=== PATIENT | female | born 1995 | race Caucasian/White ===

== ENCOUNTER 2017-09-09 17:10 | Emergency (ER) | payer OTHER ==
--- NOTE | 2017-09-09 17:39 | ER Document Report ---
ED Medical Screen (RME) - General Chief Complaint: Syncope Stated Complaint: WEAKNESS Time Seen by Provider: 09/09/17 17:33 Notes: Patient is a 22-year-old female who presents after syncopal event where she hit the right side of her head and had vomiting. She is following with cardiology and has a 30 day ekg monitor tech in place to assess for arrhythmias and causes of her syncope. Her neurologist thinks that it may be seizures, but once cardiac clearance first. Patient complaining of right-sided headache mild confusion. PE: Tenderness over right anterior forehead, no open wounds, grossly intact neuro exam I have greeted and performed a rapid initial assessment of this patient. A comprehensive ED assessment and evaluation of the patient, analysis of test results and completion of the medical decision making process will be conducted by additional ED providers. TRAVEL OUTSIDE OF THE [place] IN LAST 30 DAYS: No - Related Data Allergies/Adverse Reactions: Cephalosporins Allergy (Verified 09/09/17 17:29) Past Medical History - Social History Chew tobacco use (# tins/day): No Frequency of alcohol use: Occasional Drug Abuse: None Renal/ Medical History: Denies: Hx Peritoneal Dialysis Physical Exam - Vital signs Vitals: Temp Pulse Resp BP Pulse Ox 98.6 F 96 18 117/65 98 09/09/17 17:23 09/09/17 17:23 09/09/17 17:23 09/09/17 17:23 09/09/17 17:23 Course - Vital Signs Vital signs: Temp Pulse Resp BP Pulse Ox 98.6 F 96 18 117/65 98 09/09/17 17:23 09/09/17 17:23 09/09/17 17:23 09/09/17 17:23 09/09/17 17:23
[2017-09-09] MEDS ORDERED: ACETAMINOPHEN 325 MG TABLET PO ONE (17:45)
[2017-09-09] MEDS ORDERED: IBUPROFEN 600 MG TABLET PO ONE (17:45)
[2017-09-09 18:16] LABS: ABSOLUTE BASOPHILS # (AUTO) 0.1 10^3/uL (0.0-0.2); ABSOLUTE EOSINOPHILS # (AUTO) 0.1 10^3/uL (0.0-0.6); ABSOLUTE LYMPHOCYTES (AUTO) 2.3 10^3/uL (0.5-4.7); ABSOLUTE MONOCYTES (AUTO) 0.6 10^3/uL (0.1-1.4); BASOPHILS % (AUTO) 0.7 % (0-2); EOSINOPHILS % (AUTO) 1.4 % (0-6); HEMATOCRIT 41.1 % (36.0-47.0); HEMOGLOBIN 14.1 g/dL (12.0-15.5); LYMPHOCYTES % (AUTO) 22.8 % (13-45); MEAN CORPUSCULAR HEMOGLOBIN 30.9 pg (27.0-33.4); MEAN CORPUSCULAR HGB CONC 34.3 g/dL (32.0-36.0); MEAN CORPUSCULAR VOLUME 90 fl (80-97); MONOCYTES % (AUTO) 5.9 % (3-13); PLATELET COUNT 374 10^3/uL (150-450); RED BLOOD COUNT 4.57 10^6/uL (3.72-5.28); RED CELL DISTRIBUTION WIDTH 12.8 % (11.5-14.0); SEGMENTED NEUTROPHILS % (AUTO) 69.2 % (42-78); TOTAL CELLS COUNTED % (AUTO) 100 %; WHITE BLOOD COUNT 10.1 10^3/uL (4.0-10.5)
--- NOTE | 2017-09-09 18:20 | RADIOLOGY REPORT (SQ) ---
EXAM DESCRIPTION: CT HEAD WITHOUT COMPLETED DATE/TIME: 09/09/2017 6:04 pm REASON FOR STUDY: head injury, +LOC, N/V COMPARISON: None. TECHNIQUE: Axial images acquired through the brain without intravenous contrast. Images reviewed wi th bone, brain and subdural windows. Images stored on PACS. All CT scanners at this facility use dose modulation, iterative reconstruction, and/or weight based d osing when appropriate to reduce radiation dose to as low as reasonably achievable (ALARA). [facility]: Dose Right [facility]: CareDose [facility]: Dose Right [facility]: Teradose 4D [facility]: Datavolution RADIATION DOSE: CT Rad equipment meets quality standard of care and radiation dose reduction techniq ues were employed. CTDIvol: 53.2 mGy. DLP: 1044 mGy-cm. mGy. LIMITATIONS: None. FINDINGS: VENTRICLES: Normal size and contour. CEREBRUM: No masses. No hemorrhage. No midline shift. No evidence for acute infarction. Normal gra y/white matter differentiation. No areas of low density in the white matter. CEREBELLUM: No masses. No hemorrhage. No alteration of density. No evidence for acute infarction. EXTRAAXIAL SPACES: No fluid collections. No masses. ORBITS AND GLOBE: No intra- or extraconal masses. Normal contour of globe without masses. CALVARIUM: No fracture. PARANASAL SINUSES: No fluid or mucosal thickening. SOFT TISSUES: No mass or hematoma. OTHER: No other significant finding. IMPRESSION: NORMAL BRAIN CT WITHOUT CONTRAST. EVIDENCE OF ACUTE STROKE: NO. COMMENT: Quality ID # [id number]: Final reports with documentation of one or more dose reduction techniques (e.g., Automated exposure control, adjustment of the mA and/or kV according to patient size, use of iterative reconstruction technique) TECHNICAL DOCUMENTATION: JOB ID: [id number] [employer]- All Rights Reserved Reading location - IP/workstation name: [email or web address]
--- NOTE | 2017-09-09 18:32 | ER Document Report ---
ED Syncope and Near Syncope <DAILYMELA Jewell - Last Filed: 09/09/17 18:58> - General Mode of Arrival: Ambulatory Information source: Patient TRAVEL OUTSIDE OF THE [place] IN LAST 30 DAYS: No <DARREL MOLINA - Last Filed: 09/13/17 22:09> - General Chief Complaint: Syncope Stated Complaint: WEAKNESS Time Seen by Provider: 09/09/17 17:33 Notes: Patient is a 22 year old female with a history of syncopal episodes presents to the emergency department due to a syncopal episode. Patient states she had a syncopal event today and proceeded to hit the right side of her head on a night stand. She further states she woke up covered in vomit and with a bloody nose and a headache. Patient states that these syncopal events have been happening 2- 3x a day for the last 3 weeks further stating when she awakens she does not remember what happened and finds herself playing with her fingers on her right hand. She reports going to her candle extrusion machine operator, Dr. Boudreaux ([place]), and being placed on a wage analyst for 30 days approximately 1 week ago. When the patient begins to have symptoms she reports pressing a button on the monitor to alert her doctor she is having the symptoms. Patient mentions having a neurologist appointment on 10/05/2017. (DARREL MOLINA) - Related Data Allergies/Adverse Reactions: Cephalosporins Allergy (Verified 09/09/17 17:29) Past Medical History - General Information source: Patient - Social History Smoking Status: Never Smoker Chew tobacco use (# tins/day): No Frequency of alcohol use: Occasional Drug Abuse: None Family History: Reviewed & Not Pertinent Patient has suicidal ideation: No Patient has homicidal ideation: No <DARREL MOLINA - Last Filed: 09/13/17 22:09> Review of Systems - Review of Systems Constitutional: No symptoms reported EENT: No symptoms reported Cardiovascular: See HPI, Syncope Respiratory: No symptoms reported Gastrointestinal: See HPI, Vomiting Genitourinary: No symptoms reported Female Genitourinary: No symptoms reported Musculoskeletal: No symptoms reported Skin: No symptoms reported Hematologic/Lymphatic: No symptoms reported Neurological/Psychological: See HPI, Headaches <DARREL MOLINA - Last Filed: 09/13/17 22:09> Physical Exam - General General appearance: Appears well, Alert In distress: None - HEENT Head: Normocephalic, Other - minor contusion the right anterior forhead. Eyes: Normal Conjunctiva: Normal Extraocular movements intact: Yes Pupils: PERRL Mucous membranes: Normal Neck: Normal - Respiratory Respiratory status: No respiratory distress Chest status: Nontender Breath sounds: Normal Chest palpation: Normal - Cardiovascular Rhythm: Regular Heart sounds: Normal auscultation Murmur: No Friction rub: No Gallop: None auscultated - Abdominal Inspection: Morbidly Obese Distension: No distension Bowel sounds: Normal Tenderness: Nontender Organomegaly: No organomegaly - Back Back: Normal - Extremities General upper extremity: Normal ROM General lower extremity: Normal ROM - Neurological Neuro grossly intact: Yes Cognition: Normal Orientation: AAOx4 Nida Coma Scale Eye Opening: Spontaneous [place] Coma Scale Verbal: Oriented [place] Coma Scale Motor: Obeys Commands Nida Coma Scale Total: 15 Speech: Normal - Psychological Associated symptoms: Normal affect, Normal mood, Other - When relaying intensive history patient is animated and speaking very fast. - Skin Skin Temperature: Warm Skin Moisture: Dry Skin Color: Normal <DARREL MOLINA - Last Filed: 09/13/17 22:09> - Vital signs Vitals: Temp Pulse Resp BP Pulse Ox 98.6 F 96 18 117/65 98 09/09/17 17:23 09/09/17 17:23 09/09/17 17:23 09/09/17 17:23 09/09/17 17:23 Course - Laboratory Result Diagrams: 09/09/17 17:42 09/09/17 17:42 - EKG Interpretation by Ia EKG shows normal: Sinus rhythm, [place], Intervals, QRS Complexes, ST-T Waves Rate: Normal - 92 Rhythm: NSR <MELA AMBROSIO - Last Filed: 09/09/17 18:58> - Laboratory Result Diagrams: 09/09/17 17:42 09/09/17 17:42 <DARREL MOLINA - Last Filed: 09/13/17 22:09> - Vital Signs Vital signs: Temp Pulse Resp BP Pulse Ox 98.9 F 96 19 104/78 97 09/09/17 19:02 09/09/17 17:23 09/09/17 19:02 09/09/17 19:02 09/09/17 19:02 - Laboratory Laboratory results interpreted by me: 09/09/17 17:42 ALT 61 H Discharge <MELA MABROSIO - Last Filed: 09/09/17 18:58> <DARREL MOLINA - Last Filed: 09/13/17 22:09> - Discharge Clinical Impression: Syncope and collapse, Seizure disorder Right temporal frontal scalp contusions Qualifiers: Encounter type: initial encounter Qualified Code(s): S00.03XA - Contusion of scalp, initial encounter Condition: Stable Disposition: HOME, SELF-CARE Additional Instructions: Seizure: You have PROBABLY had a seizure. Seizure disorders (epilepsy) of one sort or another affect about one out of 50 people. The seizure occurs because of abnormal electrical activity in the brain. Seizures may be due to drugs and alcohol, strokes, brain injury, or infection. In the most common form of epilepsy, no cause can be found. You will require further evaluation to determine the cause of your seizure, and to determine whether anti-seizure medication is required. This follow-up testing is important, so please call us if you encounter problems with scheduling of tests or appointments. YOU SHOULD NOT DRIVE until released to do so by your physician. The law requires that seizures be reported to the [place] driver's license bureau--a seizure while driving could be catastrophic. Call the doctor if seizures recur, or if you develop new symptoms such as fever, severe headache, stiff neck, confusion or increasing sleepiness, weakness or numbness, or visual problems. Head Injury Precautions: At this point, there is no evidence that your head injury is serious. Observation is necessary, however. Take only clear liquids for the first few hours, unless told otherwise by the doctor. If no pain medication was prescribed, you may take acetaminophen according to the directions on the bottle. Do not take any medication that may alter your level of alertness (unless you've discussed it with the doctor first) . Limit activity for the first 24 hours. Bed rest is best. During the first 24 hours, check to see approximately every two to three hours that the patient is easily arousable, responds normally, and can perform common tasks such as walking without difficulty. Contact your doctor or go to the hospital if any of the following things occur: Persistent vomiting, difficulty in arousing the patient, worsening or continued headache, or failure to improve as expected. Head injuries can cause symptoms that persist for a few days or even a few weeks. Your history and physical exam suggests that you may have a seizure disorder. Your head injury does not appear to be serious. You should use ice packs to the scalp contusion today to reduce swelling. Take seizure/fall precautions. Follow-up with your primary care provider to see if your neurology appointment can be moved up. RETURN TO THE EMERGENCY ROOM IF ANY NEW OR WORSENING SYMPTOMS. Scribe Attestation: 09/09/17 19:03 I personally performed the services described in the documentation, reviewed and edited the documentation which was dictated to the scribe in my presence, and it accurately records my words and actions. (MELA AMBROSIO) Scribe Documentation - Scribe Written by Wanda:: Wanda Servin, 09/09/2017 18:44 acting as scribe for :: Daily <DARREL MOLINA - Last Filed: 09/13/17 22:09>
[2017-09-09 18:37] LABS: ALANINE AMINOTRANSFERASE 61 U/L (9-52); ALBUMIN 4.6 g/dL (3.5-5.0); ALKALINE PHOSPHATASE 83 U/L (38-126); ANION GAP 11 (5-19); ASPARTATE AMINO TRANSFERASE 33 U/L (14-36); BILIRUBIN,DIRECT 0.3 mg/dL (0.0-0.4); BILIRUBIN,TOTAL 0.4 mg/dL (0.2-1.3); BLOOD UREA NITROGEN 15 mg/dL (7-20); CALCIUM 10.2 mg/dL (8.4-10.2); CARBON DIOXIDE 29 mmol/L (22-30); CHLORIDE 102 mmol/L (98-107); GLUCOSE 97 mg/dL (75-110); POTASSIUM 4.6 mmol/L (3.6-5.0); SODIUM 142.4 mmol/L (137-145); TOTAL PROTEIN 7.6 g/dL (6.3-8.2)
--- NOTE | 2017-09-09 19:25 | EKG REPORT ---
SEVERITY:- NORMAL ECG - SINUS RHYTHM : Confirmed by: Fernando Dumont MD 09-Sep-2017 19:24:37
[2017-09-09 19:26] VITALS: BP 104/78
== END 2017-09-09 19:22 | disposition home or self-care (01) ==
LOC: ER 17:10
DX: R55 Syncope and collapse (principal); R53.1 Weakness; G40.909 Epilepsy, unspecified, not intractable, without status epilepticus; S00.03XA Contusion of scalp, initial encounter; W22.09XA Striking against other stationary object, initial encounter; Y92.003 Bedroom of unspecified non-institutional (private) residence as the place of occurrence of the external cause; R11.10 Vomiting, unspecified
CPT/HCPCS: 36415; 70450; 80053; 81025; 85025; 93005; 93010; 99284

== ENCOUNTER → 2017-10-14 | Outpatient (CLI) | payer OTHER ==
--- NOTE | 2017-10-15 09:29 | EEG PRO FEE REPORT ---
EEG INTERPRETATION PATIENT NAME: SOPHIE KHALIL ROOM#: ORDER#: [id number] DATE OF STUDY: 10/14/2017 : 1995 REFERRING MD: RENATE PRABHAKAR M.D. MEDICATIONS Glucophage, cyanocobalamin History This is a 22 year old right handed woman with a two month history of passing out and then zoning out while playing with fingers on her right hand according to her . She has a family history of seizures. This EEG was requested for syncope verses seizures. EEG Interpretation This EEG was recorded in the awake and brief drowsy states. The awake EEG is characterized by a well organized background with a well developed and reactive posterior dominant rhythm of 11 Hz. Drowsiness is characterized by attenuation and slowing of the background rhythms. Sleep was not obtained. Photic stimulation resulted in no significant changes. Hyperventilation resulted in generalized slowing of the background rhythms. The EKG strip showed a sinus tachycardia of greater than 100 beats per minute. There were no epileptiform discharges. EEG Impression This EEG is within normal limits in the awake and brief drowsy states. The EKG strip showed a tachycardia. INTERPRETING PHYSICIAN: GEMINI WASSERMAN M.D. /: MTEFTITO TT: [id number] ID: [id number] /: [id number] TD: 2300 JOB: [id number] cc:Nicole VO M.D. > MTDD
== END ==
LOC: NEURO 12:54
PROVIDERS: ATTEND Pediatrics
DX: R55 Syncope and collapse (principal)
CPT/HCPCS: 95819

== ENCOUNTER 2017-11-15 12:38 | Emergency (ER) | payer OTHER ==
--- NOTE | 2017-11-15 13:29 | ER Document Report ---
ED Medical Screen (RME) - General Chief Complaint: Urinary Problem Stated Complaint: BLOOD IN URINE Time Seen by Provider: 11/15/17 13:17 Notes: RAPID MEDICAL EVALUATION DISCLOSURE I have seen this patient as part of a Rapid Medical Evaluation and, if applicable, placed any initially appropriate orders. The patient will be seen and fully evaluated, including a full history and physical exam, by a provider ( in Main ED or Fast Track) when a room becomes available. 22-year-old female here with several days of lightheadedness generalized weakness abdominal pain nausea chills and blood in her underwear. She has used about 40 pads in the last 3 days. She believes the blood (with clots) is coming from her urethra however is not certain. She just came off her. Within the last 2 weeks and should not be bleeding vaginally, she reports. She has a history of UTI but has never had blood in the urine. EXAM Mildly tachycardic low 100s Mild epigastric TTP Minimal suprapubic TTP No CVA TTP TRAVEL OUTSIDE OF THE [place] IN LAST 30 DAYS: No - Related Data Allergies/Adverse Reactions: Cephalosporins Allergy (Verified 11/15/17 12:39) Past Medical History Renal/ Medical History: Denies: Hx Peritoneal Dialysis Physical Exam - Vital signs Vitals: Temp Pulse Resp BP Pulse Ox 98.9 F 108 H 20 110/57 L 99 11/15/17 12:51 11/15/17 12:51 11/15/17 12:51 11/15/17 12:51 11/15/17 12:51 Course - Vital Signs Vital signs: Temp Pulse Resp BP Pulse Ox 98.9 F 108 H 20 110/57 L 99 11/15/17 12:51 11/15/17 12:51 11/15/17 12:51 11/15/17 12:51 11/15/17 12:51
[2017-11-15 14:02] LABS: ABSOLUTE EOSINOPHILS # (AUTO) 0.1 10^3/uL (0.0-0.6); ABSOLUTE LYMPHOCYTES (AUTO) 2.1 10^3/uL (0.5-4.7); ABSOLUTE MONOCYTES (AUTO) 0.4 10^3/uL (0.1-1.4); ABSOLUTE NEUT (AUTO) 6.9 10^3/uL (1.7-8.2); BASOPHILS % (AUTO) 0.4 % (0-2); EOSINOPHILS % (AUTO) 1.3 % (0-6); HEMATOCRIT 40.3 % (36.0-47.0); HEMOGLOBIN 13.9 g/dL (12.0-15.5); MEAN CORPUSCULAR HEMOGLOBIN 30.2 pg (27.0-33.4); MEAN CORPUSCULAR HGB CONC 34.3 g/dL (32.0-36.0); MEAN CORPUSCULAR VOLUME 88 fl (80-97); MONOCYTES % (AUTO) 4.6 % (3-13); PLATELET COUNT 351 10^3/uL (150-450); RED BLOOD COUNT 4.59 10^6/uL (3.72-5.28); RED CELL DISTRIBUTION WIDTH 13.1 % (11.5-14.0); SEGMENTED NEUTROPHILS % (AUTO) 71.7 % (42-78); TOTAL CELLS COUNTED % (AUTO) 100 %; WHITE BLOOD COUNT 9.6 10^3/uL (4.0-10.5)
[2017-11-15 14:26] LABS: ALANINE AMINOTRANSFERASE 48 U/L (9-52); ALBUMIN 4.5 g/dL (3.5-5.0); ALKALINE PHOSPHATASE 78 U/L (38-126); ANION GAP 13 (5-19); ASPARTATE AMINO TRANSFERASE 33 U/L (14-36); BILIRUBIN,DIRECT 0.3 mg/dL (0.0-0.4); BILIRUBIN,TOTAL 0.6 mg/dL (0.2-1.3); BLOOD UREA NITROGEN 15 mg/dL (7-20); CALCIUM 9.8 mg/dL (8.4-10.2); CARBON DIOXIDE 28 mmol/L (22-30); CHLORIDE 103 mmol/L (98-107); GLUCOSE 112 mg/dL (75-110); LIPASE 18.6 U/L (23-300); POTASSIUM 4.4 mmol/L (3.6-5.0); SODIUM 143.6 mmol/L (137-145); TOTAL PROTEIN 7.3 g/dL (6.3-8.2)
--- NOTE | 2017-11-15 15:38 | ER Document Report ---
ED General - General Chief Complaint: Urinary Problem Stated Complaint: BLOOD IN URINE Time Seen by Provider: 11/15/17 13:17 TRAVEL OUTSIDE OF THE [place] IN LAST 30 DAYS: No - HPI Notes: 22-year-old female who presents with possible vaginal bleeding. Patient describes several days of increasingly heavy bleeding, she is unable to tell if it is coming from her urethra or her vagina. Last period was several weeks ago , normal. No use of anticoagulants. No history of heavy bleeding in the past. Some mild crampy mid lower suprapubic pain. No history of malignancy or bladder malignancy, no family history of similar. Gradual onset, nonradiating. No other modifying factors, no other associated symptoms, no other provocative or palliative factors. - Related Data Allergies/Adverse Reactions: acetaminophen [From [place]] Allergy (Verified 11/15/17 13:30) Cephalosporins Allergy (Verified 11/15/17 12:39) hydrocodone [From [place]] Allergy (Verified 11/15/17 13:30) Past Medical History - Social History Smoking Status: Never Smoker Chew tobacco use (# tins/day): No Frequency of alcohol use: Occasional Drug Abuse: None Family History: Reviewed & Not Pertinent Patient has suicidal ideation: No Patient has homicidal ideation: No - Medical History Notes: Includes PCO S Renal/ Medical History: Denies: Hx Peritoneal Dialysis Past Surgical History: Reports: Hx Appendectomy, Hx Section, Hx Orthopedic SurgeryComment Only: Hx Abdominal Surgery - tumors removed Review of Systems - Review of Systems Notes: Review of systems as in the history of present illness, otherwise negative x 10 systems. Physical Exam - Vital signs Vitals: Temp Pulse Resp BP Pulse Ox 98.9 F 108 H 20 110/57 L 99 11/15/17 12:51 11/15/17 12:51 11/15/17 12:51 11/15/17 12:51 11/15/17 12:51 - Notes Notes: General: Well developed . HEENT: Normocephalic, atraumatic. Pupils equal round reactive to light. No JVD. Chest: No trauma. Respiratory: Good air exchange, normal excursion. Cardiac: Regular rhythm. No murmurs or gallops. Abdomen: Soft, benign. Nondistended. Nontender. Back: No asymmetry or gross abnormality. Motor: Grossly normal power and tone. Neurologic: Alert, nonfocal. Cranial nerves II-12 are intact. Sensation intact. Vascular: Well perfused. Normal peripheral pulses. Skin: No petechiae or purpura. Course - Re-evaluation Re-evalutation: 11/15/17 15:37 Well-appearing female the after mentioned symptoms. Patient seen by physician in triage and labs are reviewed, CBC, chemistries unremarkable. Urine is pending. Patient's exam is relatively benign. Consider dysfunctional uterine bleeding, cyst, urgency related emergency, this may also be hematuria. Plan to proceed with basic exam, cath UA and reassess. 11/15/17 16:15 Labs reviewed, unremarkable. Urinalysis shows trace hematuria but may be contaminated as she had a substantial amount of blood Pelvic examination is performed, there is a large amount of blood in the vault, no tenderness. Patient appears to have dysfunctional uterine bleeding, discharge home, will take naproxen, will follow up with her BOX ATTACHER. - Vital Signs Vital signs: Temp Pulse Resp BP Pulse Ox 98.9 F 108 H 20 110/57 L 99 11/15/17 12:51 11/15/17 12:51 11/15/17 12:51 11/15/17 12:51 11/15/17 12:51 - Laboratory Result Diagrams: 11/15/17 13:45 11/15/17 13:45 Laboratory results interpreted by me: 11/15/17 11/15/17 13:45 15:20 Glucose 112 H Lipase 18.6 L Urine Blood SMALL H Discharge - Discharge Clinical Impression: Dysfunctional uterine bleeding Condition: Good Disposition: HOME, SELF-CARE Instructions: Dysfunctional Uterine Bleeding ([facility]) Prescriptions: Naproxen 500 mg PO Q12 PRN #12 tablet PRN Reason:
[2017-11-15 15:43] LABS: APPEARANCE,URINE CLEAR; BILIRUBIN,URINE NEGATIVE (NEGATIVE); COLOR,URINE YELLOW; GLUCOSE, URINE NEGATIVE (NEGATIVE); KETONES,URINE NEGATIVE (NEGATIVE); LEUKOCYTE ESTERASE,URINE NEGATIVE (NEGATIVE); NITRITE,URINE NEGATIVE (NEGATIVE); PROTEIN,URINE NEGATIVE (NEGATIVE); URINE SPECIFIC GRAVITY 1.021; UROBILINOGEN,URINE NEGATIVE mg/dL (<2.0)
[2017-11-15 16:24] VITALS: BP 111/66
== END 2017-11-15 16:25 | disposition home or self-care (01) ==
LOC: ER 12:38
DX: N93.8 Other specified abnormal uterine and vaginal bleeding (principal); R10.30 Lower abdominal pain, unspecified; Z88.6 Allergy status to analgesic agent; Z88.1 Allergy status to other antibiotic agents; Z88.5 Allergy status to narcotic agent
CPT/HCPCS: 36415; 51701; 80053; 81001; 81025; 83690; 85025; 99284